=== PATIENT | female | born 1970 | race Two or more races ===

== ENCOUNTER 2018-12-29 21:34 | Emergency (ER) | payer MEDICAID, OTHER ==
[~2018-12-29] VITALS: Ht 154.9 cm; Wt 68.0 kg
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
--- NOTE | 2018-12-29 22:05 | NUR ---
DR STEPHENS AT BEDSIDE
--- NOTE | 2018-12-29 22:17 | NUR ---
PT BROUGHT BY RADIOLOGY TO CT
[2018-12-29] MEDS ORDERED: HYDROCODONE/APAP 10/325MG 1 EA TABLET ONE (23:15)
[2018-12-29] MEDS ORDERED: HYDROCODONE/APAP 10/325MG 1 EA TABLET PO ONE (23:30)
--- NOTE | 2018-12-29 23:42 | NUR ---
Patient discharged to home with sister in stable condition. Written and verbal after care instructions given. Patient and sister verbalizes understanding of instruction.
[2018-12-29 23:43] VITALS: BP 116/69
== END 2018-12-29 23:44 | disposition home or self-care (01) ==
LOC: ER 21:35
DX: S06.0X0A Concussion without loss of consciousness, initial encounter (principal); F41.9 Anxiety disorder, unspecified; F32.9 Major depressive disorder, single episode, unspecified; E11.9 Type 2 diabetes mellitus without complications; Z88.6 Allergy status to analgesic agent; V23.4XXA Motorcycle driver injured in collision with car, pick-up truck or van in traffic accident, initial encounter; Y93.55 Activity, bike riding; Y92.89 Other specified places as the place of occurrence of the external cause; Y99.8 Other external cause status
CPT/HCPCS: 70450-TC; 72125-TC; 72128-TC; 72131-TC